=== PATIENT | male | born 1950 | race Caucasian/White ===

== ENCOUNTER → 2020-11-30 | Outpatient (CLI) | payer MEDICARE, OTHER | LOC: KOH-I 09:00 | DX: C18.9 Malignant neoplasm of colon, unspecified (principal); N18.2 Chronic kidney disease, stage 2 (mild); N28.9 Disorder of kidney and ureter, unspecified; R91.8 Other nonspecific abnormal finding of lung field | CPT/HCPCS: 71250; 76775 ==

== ENCOUNTER → 2021-12-02 | Outpatient (CLI) | payer MEDICARE, OTHER | LOC: CT 11-24 10:30 → KOH-I 11-24 10:34 | DX: Z87.891 Personal history of nicotine dependence (principal) | CPT/HCPCS: 71271 ==